=== PATIENT | female | born 1965 | race Caucasian/White ===

== ENCOUNTER 2018-01-16 17:35 | Emergency (ER) | payer OTHER ==
[~2018-01-16] VITALS: Ht 160 cm; Wt 88.5 kg
[~2018-01-16 17:35] MED LIST: CODACE30 PO; CYCL10 PO; DIPH50 PO; EPIN.3I IM; ERGO50000; FAMO20 PO; FISH1000; HYDPAM25 PO; Norco 5-325 Ta1 EACH PO; PRAV20; PRED20 PO; RXCODACET PO; Verotin-Gr Cap1 EACH
[2018-01-16] MEDS ORDERED: ALBU90OI INH (18:35)
[2018-01-16] MEDS ORDERED: VENL75ER PO (18:35)
[2018-01-16] MEDS ORDERED: Flovent Diskus50 MCG IH (18:35)
[2018-01-16] MEDS ORDERED: OMEPRAZOLE MAGN20 MG PO (18:35)
[2018-01-16] MEDS ORDERED: HYDPAM25 PO (18:36)
[2018-01-16] MEDS ORDERED: CYCL10 PO (18:36)
[2018-01-16] MEDS ORDERED: HYDR1TAB94 PO (19:31)
== END 2018-01-16 19:38 | disposition home or self-care (01) ==
LOC: ER 17:35
DX: M75.32 Calcific tendinitis of left shoulder (principal); F17.200 Nicotine dependence, unspecified, uncomplicated; Z88.8 Allergy status to other drugs, medicaments and biological substances; Z79.899 Other long term (current) drug therapy
CPT/HCPCS: 73030; 96372; 99283-25; J1885

== ENCOUNTER → 2022-02-26 | Outpatient (CLI) | payer OTHER ==
[~2022-02-26] MED LIST changes: +ALBU90OI INH; +Flovent Diskus50 MCG IH; +HYDR1TAB94 PO; +OMEPRAZOLE MAGN20 MG PO; +VENL75ER PO
[2022-03-02 00:08] LABS: CHLAMYDIA BY NAA Negative (Negative); GONOCOCCUS BY NAA Negative (Negative); TRICH VAG BY NAA Negative (Negative)
== END | disposition home or self-care (01) ==
LOC: LAB 14:17 → LAB SHORT 14:17
PROVIDERS: Internal Medicine
DX: Z11.59 Encounter for screening for other viral diseases (principal)
CPT/HCPCS: 87491; 87591; 87661

== ENCOUNTER → 2023-12-02 | Outpatient (CLI) | payer OTHER ==
[2023-12-03 07:43] LABS: Candida glabrata-krusei, PCR NOT DETECTED (NOT DETECT)
[2023-12-03 08:30] LABS: Bacterial Vaginosis PCR Positive (NEGATIVE); Candida Group, PCR DETECTED (NOT DETECT)
[2023-12-06 19:33] LABS: APTIMA MEDIA TYPE Urine; C. TRACHOMATIS BY TMA Negative (Negative); N. GONORRHOEAE BY TMA Negative (Negative); SPECIMEN SOURCE Urine
== END ==
LOC: LAB SHORT 18:38 → LAB 18:38
PROVIDERS: Nurse Practitioner Family
DX: N89.8 Other specified noninflammatory disorders of vagina (principal)
CPT/HCPCS: 87086; 87481; 87491; 87591; 87661; 87801